=== PATIENT | male | born 1980 | race Caucasian/White ===

== ENCOUNTER 2025-01-15 11:11 | Emergency (ER) | payer OTHER, SELFPAY ==
--- NOTE | 2025-01-15 11:57 | ED.GENMED ---
History of Present Illness
General
Chief Complaint: Rabies
Source: patient
Time Seen by Provider: 01/15/25 11:32
History of Present Illness
History of Present Illness:
44 year old male presenting to ED for evaluation and treatment for rabies after patient and spouse found a bat in their house. Bat was brought to animal [facility] for testing. Patient and spouse still requesting treatment. No physical concerns at
this time.
Past History
Past History
ED Past Medical History: None
ED Past Surgical History: None
Social History
Tobacco: Non-smoker
Alcohol: None
Drug: None
Personal:
Living: with family
Review of Systems
Review of Systems
All Other Systems: ROS reviewed and negative except as documented in HPI and ROS
Phy Exam
Physical Exam
Physical Exam:
GENERAL: Alert , in no apparent distress
EYE: conjunctiva clear
Head: Normocephalic atraumatic
NECK: Supple,
ENT: mmm.
LUNGS: no acute respiratory distress
NEUROLOGICAL: Alert and oriented
SKIN: Warm and dry, skin intact.
MUSCULOSKELETAL: well perfused.
PSYCH: Normal and appropriate interaction.
Scores
Heart Failure Risk
Heart Failure Risk Score: Not Applicable
Heart Score for Chest Pain Patients
STEMI patient?: Not applicable
Withdrawal Assessment of Alcohol
Withdrawal Assessment Completed?: Not applicable
Course
Orders/Labs/Results
Orders:
Orders
01/15/25 11:53
Rabies Immune Globulin/Pf [HyperRAB] 1,400 unit IM NOW STA
01/15/25 12:09
Rabies Immune Globulin/Pf [HyperRAB] 1,400 unit IM NOW STA
01/15/25 12:15
Rabies Vaccine (Pcec)/Pf [Rabavert Rabies Vacc W-Diluent] 2.5 unit IM .ONCE ONE
Vital Signs
Initial and Last Documented VS:
Initial Vital Signs
Temp Pulse Resp Pulse Ox
98.4 F 75 16 97
01/15/25 11:19 01/15/25 11:19 01/15/25 11:19 01/15/25 11:19
Last Documented Vital Signs
Temp Pulse Resp BP Pulse Ox
98.4 F 105 20 143/65 97
01/15/25 11:19 01/15/25 12:30 01/15/25 12:30 01/15/25 12:30 01/15/25 12:30
MDM/Problems Addressed
MDM/Problems Addressed:
Patient presenting to ED for rabies vaccine. I did have conversation with patient and spouse that given the animal is currently being tested for rabies it would be okay to wait for these results prior to treatment however he they did not comfortable
with this plan and ultimately preferred to initiate treatment now. Will return to [facility] for subsequent vaccinations. Stable for discharge
*Pulse Oximetry
SaO2: 97
Oxygen Mode of Delivery: Room air
Patient hypoxic: no
*Critical Care Note
Total Time (30-74mins, 75-104mins- exclusive of procedures): Not Applicable
ED Attending Note
-
Portions of this chart may have been created with voice recognition software.� Occasional wrong word or��sound alike� substitutions may have occurred due to the inherent limitations of voice recognition software.
Discharge Plan
Departure
Patient Disposition: Home (Routine Discharge)
Date of Disposition: 01/15/25
Time of Disposition: 11:57
Patient with high blood pressure during this ER visit?: No
Discharge Problem:
Encounter for immunization
Stand Alone Forms: Rabies Vaccine Post Exp Dosing
Interventions
Interventions:
*Risk Screen - Suicide Last Done: 01/15/25 11:19
*General Assessment Last Done: 01/15/25 11:54
*Neglect/Abuse Screening Last Done: 01/15/25 11:19
*ED- Fall Risk Assessment Last Done: 01/15/25 11:54
*ED COVID-19 Vaccine History Last Done: 01/15/25 11:54
Discharge Date and Time
Print Language: KHMER
[2025-01-15 12:30] VITALS: BP 143/65
[2025-01-15] MEDS: RABAVERT RABIES VACC W-DILUENT 2.5 UNIT IM (13:05)
== END 2025-01-15 13:15 | disposition home or self-care (01) ==
LOC: EMR 11:11
PROVIDERS: EMERGENCY PHYSICIAN Emergency Medicine
DX: Z23 Encounter for immunization (principal); Z20.3 Contact with and (suspected) exposure to rabies; Z29.14 Encounter for prophylactic rabies immune globulin
CPT/HCPCS: 99284; 96372; 90471; 90375; 90675

== ENCOUNTER 2025-01-29 14:23 | Outpatient (RCR) | payer OTHER, SELFPAY ==
[2025-01-18] MEDS: RABAVERT RABIES VACC W-DILUENT 2.5 UNIT IM (08:57)
--- NOTE | 2025-01-18 09:23 | PTCARENOTE ---
Pt refused to have blood pressure and pulse taken. He says it causes him anxiety. Temperature was taken.
[2025-01-22] MEDS: RABAVERT RABIES VACC W-DILUENT 2.5 UNIT IM (15:21)
--- NOTE | 2025-01-22 15:24 | PTCARENOTE ---
pt refusing bp and hr to be taken, temp taken was 97.7
--- NOTE | 2025-01-29 14:37 | PTCARENOTE ---
Pt refused to have blood pressure and pulse taken. He says it causes him anxiety. Temperature was taken.
[2025-01-29] MEDS: RABAVERT RABIES VACC W-DILUENT 2.5 UNIT IM (14:40)
== END 2025-01-31 23:59 | disposition home or self-care (01) ==
LOC: OID 14:23
PROVIDERS: ATTENDING PHYSICIAN Physician Assistant Medical
DX: Z20.3 Contact with and (suspected) exposure to rabies (principal); Z23 Encounter for immunization
CPT/HCPCS: 90471; 90675